=== PATIENT | female | born 2000 | race African-American/Black ===

== ENCOUNTER 2020-11-28 13:39 | Observation (INO) ==
[2020-11-28 15:16] LABS: ABS Lymphocytes 1.9 10^3/ul (1.0-4.8); ABS Monocytes 0.5 10^3/ul (0-0.8); ABS Neutrophils 6.7 10^3/ul (1.5-7.7); Eosinophil % 0.2 %; Hematocrit 42 % (35-47); Hemoglobin 14.3 g/dL (12.0-16.0); Lymphocyte % 20.8 %; Mean Corpuscular HGB Conc 34 g/dL (31-36); Mean Corpuscular Hemoglobin 29 pg (27-31); Mean Corpuscular Volume 84 fL (80-97); Platelet Count 274 10^3/uL (150-450); Red Blood Count 5.03 10^6 /uL (3.70-4.87); Red Cell Distribution Width 14 % (10-15); White Blood Count 9.1 10^3/uL (3.5-10.8)
[2020-11-28 15:34] LABS: Anion Gap 7 mmol/L (2-11); Blood Urea Nitrogen 11 mg/dL (6-24); CO2 Carbon Dioxide 26 mmol/L (22-32); Calcium 9.8 mg/dL (8.6-10.3); Chloride 102 mmol/L (101-111); EGFR African American 121.8 (>60); EGFR Non-African American 100.6 (>60); Glucose 78 mg/dL (70-100); Potassium 3.8 mmol/L (3.5-5.0); Sodium 135 mmol/L (135-145); Total Protein 7.7 g/dL (6.4-8.9)
[2020-11-28 15:35] LABS: ALT 14 U/L (7-52); AST 17 U/L (13-39); Albumin 4.5 g/dL (3.2-5.2); Albumin/Globulin Ratio 1.4 (1-3); Alkaline Phosphatase 41 U/L (35-149); C Reactive Protein 25.12 mg/L (<8.01); Globulin 3.2 g/dL (2-4)
[2020-11-28] MEDS ORDERED: Iohexol 300 (CONTRAST) 10 ML SDV IV ONE (16:11)
[2020-11-28 19:52] LABS: HCG Pregnancy < 0.60 mIU/mL
[2020-11-28] MEDS ORDERED: Lactated Ringers 1000 ml BAG 1,000 ML IV ONE (21:37)
[2020-11-28] MEDS ORDERED: Ondansetron 4 mg VIAL 2 MG/ML 2 ml VIAL IV PRN (21:58)
[2020-11-28] MEDS ORDERED: HYDROmorphone 1 MG/1 ML SYRINGE IV SLOW PU PRN (21:58)
[2020-11-28] MEDS ORDERED: ceFOXitin 1 GM in NS 0.9% 50 ML 50 ML IVPB ONE (21:58)
[2020-11-28] MEDS ORDERED: ZOSYN 3.375 GM x ONE DOSE over 30 miuntes IV (22:05)
[2020-11-28] MEDS ORDERED: NS 0.9% 1000 ml BAG 1,000 ML IV SCH (22:15)
[2020-11-28 22:58] LABS: Rapid COVID-19 Molecular Undetected (Undetected)
[2020-11-29] MEDS: Piperacillin/Tazobactam VIAL 3.375 GM in NS 0.9% 100 ml BAG 100 ML IVPB SCH ×2 (03:30→11:07)
[2020-11-29] MEDS ORDERED: Rocuronium 50 mg VIAL 10 mg/ml 5 ml VIAL (50 mg) ONE (15:25)
[2020-11-29] MEDS ORDERED: Lidocaine 2% PF 5 ML VIAL ONE (15:25)
[2020-11-29] MEDS ORDERED: Propofol 10 MG/ML 20 ML BTL ONE (15:25)
[2020-11-29] MEDS ORDERED: Midazolam 2 mg/2 ml VIAL 1 mg/ml 2 ml VIAL (2 mg) ONE (15:25)
[2020-11-29] MEDS ORDERED: fentaNYL 250 mcg/5 ml 50 MCG/ML 5 ml VIAL (250 MCG) ONE (15:25)
[2020-11-29] MEDS ORDERED: Dexamethasone IV 4 MG/ML VIAL 1 ml VIAL ONE (15:25)
[2020-11-29] MEDS ORDERED: Ondansetron 4 mg VIAL 2 MG/ML 2 ml VIAL ONE (15:25)
[2020-11-29] MEDS ORDERED: Bupivacaine 0.25% SDV 30 ML ONE (16:36)
[2020-11-29] MEDS ORDERED: ceFAZolin VIAL VIAL ONE (16:53)
[2020-11-29] MEDS ORDERED: Acetaminophen IV 1 GM/100ML 100 ML IV PRN (17:08)
[2020-11-29] MEDS ORDERED: DiMENhydriNATE IV 50 mg/ml 1 ml VIAL IV PUSH PRN (17:08)
[2020-11-29] MEDS ORDERED: Naloxone 0.4 mg VIAL 0.4 mg/ml 1 ml VIAL IV PRN (17:08)
[2020-11-29] MEDS ORDERED: HYDROmorphone 1 MG/1 ML SYRINGE IV PRN (17:08)
[2020-11-29] MEDS ORDERED: Ondansetron 4 mg VIAL 2 MG/ML 2 ml VIAL IV PRN (17:08)
[2020-11-29] MEDS ORDERED: fentaNYL 100 mcg/2 ml 50 MCG/ML VIAL IV PRN (17:08)
[2020-11-29] MEDS ORDERED: Acetaminophen IV 1 GM/100ML 100 ML IV ONE (18:49)
[2020-11-29] MEDS ORDERED: fentaNYL 100 mcg/2 ml 50 MCG/ML VIAL ONE (18:49)
== END 2020-11-29 22:00 | disposition home or self-care (01) ==
LOC: ED 13:39 → SSU 13:39
PROVIDERS: ADMIT Surgery; ATTEND Surgery